=== PATIENT | male | born 1955 | race Caucasian/White ===

== ENCOUNTER 2019-04-10 10:55 | Emergency (ER) | payer MEDICARE, OTHER ==
[~2019-04-10] VITALS: Ht 175.3 cm; Wt 111.3 kg
[2019-04-10] MEDS ORDERED: LIDOcaine 1% w/epiNEPHrine 1:200,000 30ml vial IM ONE (12:10)
[2019-04-10] MEDS ORDERED: bacitracin 15gm ointment TP ONE (12:10)
[2019-04-10 13:20] VITALS: BP 147/98
== END 2019-04-10 13:30 | disposition home or self-care (01) ==
LOC: ER 10:56
DX: S61.213A Laceration without foreign body of left middle finger without damage to nail, initial encounter (principal); S93.491A Sprain of other ligament of right ankle, initial encounter; F12.90 Cannabis use, unspecified, uncomplicated; W18.39XA Other fall on same level, initial encounter; Y93.89 Activity, other specified; Y92.89 Other specified places as the place of occurrence of the external cause; Y99.8 Other external cause status
CPT/HCPCS: 12002; 29515; 73610; 99284; J3490